=== PATIENT | male | born 1995 | race Caucasian/White ===

== ENCOUNTER 2023-11-12 22:00 | Emergency (ER) | payer OTHER ==
[~2023-11-12] VITALS: Ht 182.9 cm; Wt 88.0 kg
[2023-11-12 22:11] VITALS: O2SAT 97
[2023-11-13] MEDS: LIDOCAINE HCL/PF 1% 10 MG/ML 5ML VIAL INFIL ONE
[2023-11-13] MEDS: BACITRACIN ZINC OINT UDPKT TOP ONE
[2023-11-13] MEDS ORDERED: BO1 TP (00:36)
[2023-11-13] MEDS: TETANUS, DIPHTHERIA, PERTUSSIS VAC/PF 0.5ML (>10YR OLD) IM ONE (00:37)
[2023-11-13 01:29] VITALS: BP 124/78; PULSE 77; RESP 16; TEMP 36.72516; O2SAT 99
== END 2023-11-13 01:31 | disposition home or self-care (01) ==
LOC: ER 22:59
DX: S62.611A Displaced fracture of proximal phalanx of left index finger, initial encounter for closed fracture (principal); Y93.39 Activity, other involving climbing, rappelling and jumping off; Y93.89 Activity, other specified; Y92.89 Other specified places as the place of occurrence of the external cause; Y99.8 Other external cause status
CPT/HCPCS: 99283; 73140; 90715; 12002; 90471; J3490